=== PATIENT | female | born 1950 | race Caucasian/White ===

== ENCOUNTER 2016-08-24 05:34 | Inpatient (IN) | payer MEDICARE, OTHER ==
[2016-08-24] MEDS ORDERED: Acetaminophen, Intravenous 1,000 MG/100 ML IVBOT IV ONE ×2 (06:00→18:15)
[2016-08-24] MEDS ORDERED: OXYCODONE (OxyCONTIN) 20 MG TAB PO ONE (06:01)
[2016-08-24] MEDS ORDERED: Celecoxib 200 MG CAP PO ONE (06:02)
[2016-08-24] MEDS: CEFAZOLIN 1 GM VIAL ONE ×2 (06:18→08:31)
[2016-08-24] MEDS: BUPIVACAINE LIPOSOME/PF 1.3% 20 ML VIAL INF ONE ×3 (06:19→10:30)
[2016-08-24] MEDS ORDERED: CEFAZOLIN 1 GM VIAL ONE (06:47)
[2016-08-24] MEDS ORDERED: hydrALAZINE 20 MG/ML VIAL IV PRN (06:57)
[2016-08-24] MEDS ORDERED: LABETALOL 20 MG/4 ML SYRINGE IV PRN (06:57)
[2016-08-24] MEDS ORDERED: SCOPOLAMINE TRANSDERMAL PATCH TOP ONE (06:57)
[2016-08-24] MEDS ORDERED: ONDANSETRON HCL 4 MG ODT TAB PO PRN (06:57)
[2016-08-24] MEDS ORDERED: FENTANYL 100 MCG/2 ML VIAL IV PRN ×2 (06:57)
[2016-08-24] MEDS ORDERED: HYDROmorphone 1 MG INJECTION IV PRN ×4 (06:57→11:29)
[2016-08-24] MEDS ORDERED: MEPERIDINE 25 MG/ML TUBEX IV PRN (06:57)
[2016-08-24] MEDS ORDERED: ONDANSETRON HCL 4 MG/2 ML VIAL IV PRN ×2 (06:57→11:29)
--- NOTE | 2016-08-24 07:00 | HIM.ANES ---
Anesthesia Evaluation & Plan Diagnoses: UNILATERAL PRIMARY OSTEOARTHRITIS, LEFT KNEE (08/24/16) PAIN IN LEFT KNEE (08/24/16) Consented Procedure: LEFT TOTAL KNEE ARTHROPLASTY Surgeon:: Baltazar Wilde - Focused Review of Systems Cardiac History: No: Hx Cardiac Disorders EKG Rhythm: Sinus Bradycardia HEENT: Yes: Hx Vision Problem (PRESCRIPTION GLASSES), Other HEENT Problems Gastrointestinal: Yes: Hx Gastrointestinal Disorders, Hx Diverticulitis Neurological/Musculoskeletal: Yes: Hx Back Pain No: Hx Neurological Disorders Physiological: No Hx Mental/Emotional Disorders Blood/Autoimmune: No: Hx AIDS, Hx Hepatitis (type) Smoking Status: Former smoker Surgical History: Yes: Appendectomy (09/2011), Cholecystectomy (09/2011), Knee ( RT TKA [id number]), Other (hystectomy) Other Surgical History: EMERGENCY BOWEL RESECTION 09/2011 TOTAL HYSTERECTOMY 2008 - Focused Physical Exam NPO since: 08/23/15 1800 Mallampati: Class II Thyromental Distance: Less than 3 Neck: Full Range of Motion Dental: Normal - no significant findings Cardiovascular/Chest: Normal (RRR no mumurs or rubs.) Respiratory: Lungs clear. negative: Rhonchi, Wheezing Any problems with anesthesia, including nausea and vomiting?: No Any relatives with a history of Malignant Hyperthermia?: No Does patient have a history of Malignant Hyperthermia?: No Beta Naveen given (if appropriate): N/A Does the patient have a history of Motion Sickness-: Yes (scopolamine patch ordered) Other: Allergies Allergy/AdvReac Type Severity Reaction Status Date / Time Conurgp-Dvh-Qhb Reductase Allergy Severe severe Verified 08/24/16 06:14 Inhibitor myalgia pain medication Allergy Severe severe Uncoded 08/24/16 06:14 diarrhea Home Medications Medication Instructions Recorded Last Taken Type Cholecalciferol [Vitamin D] 1,000 units PO DAILY 08/10/16 08/23/16 History Multivitamin [One Daily] 1 each PO DAILY 08/10/16 08/23/16 History [place]-3 Fatty Acids/Fish Oil [Fish 1 each PO DAILY 08/10/16 08/17/16 History Oil 1,000 mg Capsule] L.acidoph & Paracasei,B.lactis 2 each PO BID 08/24/16 08/22/16 History [Probiotic] Height and Weight Patient's height 5 ft 2 in Patient's weight 70.76 kg Vital Signs Temperature 96.8 F L 01/03/17 06:22 Pulse Rate 66 08/24/16 06:22 Respiratory Rate 18 08/24/16 06:22 Blood Pressure 149/76 08/24/16 06:22 Pulse Oxygen Saturation 100 08/24/16 06:22 METS - Level of Activity: Climbing stairs(1 flight),walking level ground, running short distance - Anesthetic Plan Anesthesia Type: General ASA Class: 3 -: I have examined this patient and reviewed the medical record. The patient has been assessed prior to anesthesia. Risks and benefits of anesthesia and anesthetic technique options have been discussed and all questions answered. The patient accepts the risk and desires me to proceed with the planned anesthetic.
[2016-08-24 07:19] LABS: BLOOD UREA NITROGEN 19 MG/DL (7-17); CALCIUM 9.3 MG/DL (8.4-10.2); CALCULATED OSMOLALITY 270 MOs/Kg (270-290); CHLORIDE 103 mEq/L (98-107); GLUCOSE 89 MG/DL (70-99); SODIUM LEVEL 140 mEq/L (137-146)
[2016-08-24] MEDS: BUPIVACAINE 0.5% 30 ML VIAL ONE ×2 (08:30→10:30)
[2016-08-24] MEDS ORDERED: FENTANYL 250 MCG/5 ML VIAL IV ONE (10:00)
[2016-08-24] MEDS ORDERED: DEXAMETHASONE 4 MG/ML VIAL IV ONE (10:00)
[2016-08-24] MEDS ORDERED: ONDANSETRON HCL 4 MG/2 ML VIAL IV ONE (10:00)
[2016-08-24] MEDS ORDERED: MIDAZOLAM 2 MG/2 ML VIAL IV ONE (10:00)
[2016-08-24] MEDS ORDERED: LIDOCAINE 100 MG PFS IV ONE (10:00)
[2016-08-24] MEDS ORDERED: SUCCINYLCHOLINE 20 MG/1 ML INJ 10 ML MDV IV ONE (10:00)
[2016-08-24] MEDS ORDERED: PROPOFOL 200 MG/20 ML VIAL IV ONE (10:00)
--- NOTE | 2016-08-24 11:24 | HIMOPRPT ---
DATE OF PROCEDURE: 08/24/16 PREOPERATIVE DIAGNOSIS: Osteoarthritis left knee. POSTOPERATIVE DIAGNOSIS: same. OPERATION PERFORMED: Cemented left total knee arthroplasty. SURGEON: Baltazar Wilde MD BARREL RIFLER: [MK Varela] . ANESTHESIA: General. ESTIMATED BLOOD LOSS: 250 mL. DRAINS: None. COMPLICATIONS: None. DISPOSITION: Stable to the recovery room. PROCEDURE IN DETAIL: The patient was taken back to the surgical suite, where general anesthesia was induced. The bump was placed under the left hip. Bolsters were positioned to hold the knee at maximal flexion and in 90 degrees flexion. The tourniquet was applied to the left thigh, and secured with 1000 drapes. The left foot, leg, and thigh were then prepped and draped in the standard sterile fashion. A midline anterior skin incision was made. This was carried down to a medial parapatellar capsular incision. Hemostasis was achieved with the Bovie throughout the case. The initial portion of the case was done with the tourniquet down. The medial collateral ligament was released at its attachment to the proximal tibia partially. This dissection was carried around posteriorly on the tibia. Similarly, the lateral capsule was released from the proximal aspect of the lateral tibia. A drill was used to make the starting hole in the distal femur. The intramedullary guide gypsy with the attached distal femoral cutting block and jig were then inserted up shaft of the femur. The distal femoral cutting block was set at 5 degrees of valgus, and a 10-mm cut was felt to be adequate. The distal femoral cutting block was pinned to the distal femur. The guide gypsy and jig were then removed. The distal femoral cut was then made. The femur was then sized at a size 4. The size 4, all -in-one cutting block was then pinned to the distal femur. The remaining distal femoral cuts were made with the cutting block. The ACL and PCL were then resected. The tibia was subluxed anteriorly on the femur and the medial meniscus and lateral meniscus were then resected. The posterior capsule was also released from the femur, with a Bovie and Kinsey elevator. Following this, attention was directed to the proximal tibia. The extramedullary cutting jig was used to orient the proximal tibial cutting block. There was severe bone wear along the medial tibia and the cut was set at the lowest part of this wear medially. The block was aligned and then was pinned to the proximal tibia. The guide was then removed. The block was checked with the alignment gypsy and it was felt to be in good alignment. The final cross pin was then inserted into the proximal tibial cutting block, and the oscillating saw was used to make the proximal tibial cut. The tibia was sized at a size 4 tibia. The flexion and extension gaps were then checked. These were noted to be equal with the 7 mm spacer. Following this, the femoral preparation was completed by performing the notch cut on the femur. A trial femoral component was then impacted onto the femur. It was noted to have good fit and stability. A size 4 modular tibial tray trial with a 7 mm posterior stabilized trial poly insert, was inserted onto the tibia. The knee was brought through range of motion and the correct rotation for the tibial component was marked on the anterior aspect of the proximal tibia. The preparation of the patella was then performed. The patella was measured at 22 mm in thickness. The patellar cutting jig was then clamped onto the patella, and the patellar cut was made. The remaining patella was noted to be 13 mm. The patella was sized to a 35, and the 3 PEG holes were then drilled with the drill guide. A trial 35 patellar component was placed. The knee was brought through range of motion, and patellar tracking was noted to be central. At this point, the leg was exsanguinated with an Esmarch, and the tourniquet was inflated to 300 mmHg. The trial components were then removed. The tibial preparation was completed by drilling and punching the proximal tibia with the appropriate guide. Exparel was injected into the posterior capsule. Prosthetic components were opened. The cut bony surfaces were irrigated with pulsatile lavage and suctioned dry. A bone plug was placed in the distal femoral drill hole. Two packs of gentamicin cement were then mixed in the injection syringe. Cement was then injected onto the proximal tibia, and the size 4 fixed bearing tibial tray was impacted onto the tibia. Excess cement was removed. Cement was then injected onto the distal femur. The size 4 left posterior stabilized cemented femoral component was then impacted onto the distal femur. Excess cement was removed. A trial 7 mm stabilized poly insert was placed on the tibial tray. The knee was brought into extension, and axial compression was placed across the joint. Cement was then injected onto the patella and a size 35 All-Poly oval medialized dome patellar component was clamped into position, and excess cement was removed. The prosthesis used was the synthetic substitute metal DePuy Attune total knee. The cement was allowed to cure. The tourniquet was deflated after cement had cured,and final hemostasis was achieved.Then, the stability of the knee was again checked. The knee was brought through range of motion. It was noted to come into full extension with good soft tissue balance medially and laterally. Mid-range soft tissue balance was good as well, and soft tissue balance at 90 degrees flexion, was good. At this point, the trial poly component was removed and a prosthetic 7 mm size 4 posterior stabilized fixed bearing poly insert was impacted onto the tibial tray, and the knee was then reduced and brought through range of motion. It was noted to have good soft tissue balance in flexion and extension, with central patellar tracking, and full extension. The knee was then irrigated with the pulsatile lavage. Exparel was injected medially and laterally along the MCL, LCL, VMO, and capsular incision. Another round of irrigation was performed. The capsular incision was closed with #2 FiberWire suture and #1 Vicryl suture. The knee triangle was used to flex the knee to 30 degrees for the closure. The subcutaneous tissues were then irrigated , injected with 5% Sensorcaine, and closed in 2 layers with inverted 0-Vicryl suture deep, inverted 2-0 Vicryl suture superficially. A running subcuticular 3- 0 Monocryl suture was then placed in the skin and a sterile Aquacel Ag dressing was applied. The patient was then extubated and taken to the recovery room in stable condition. The patient tolerated the procedure well without immediate complications.
[2016-08-24] MEDS ORDERED: DIPHENHYDRAMINE 50 MG/ML VIAL IV PRN (11:29)
[2016-08-24] MEDS ORDERED: Aluminum;Magnesium;Simethicone 30 ML UDC PO PRN (11:29)
[2016-08-24] MEDS ORDERED: ZOLPIDEM TARTRATE 5 MG TAB PO PRN (11:29)
[2016-08-24] MEDS ORDERED: DIPHENHYDRAMINE 25 MG CAP PO PRN (11:29)
[2016-08-24] MEDS ORDERED: MAGNESIUM HYDROXIDE 30 ML BOTTLE PO PRN (11:29)
[2016-08-24] MEDS ORDERED: BISACODYL 10 MG SUPP PR PRN (11:29)
[2016-08-24] MEDS ORDERED: SODIUM CHLORIDE 0.9% 3 ML FLUSH FLUSH PRN (11:29)
[2016-08-24] MEDS ORDERED: NALOXONE 0.4 MG/ML AMPULE IV SCH (12:00)
[2016-08-24] MEDS ORDERED: FENTANYL 100 MCG/2 ML VIAL ONE (12:16)
--- NOTE | 2016-08-24 12:23 | DIRPT ---
CLINICAL DATA: 66-year-old female status post knee surgery today. Initial encounter. EXAM: PORTABLE LEFT KNEE - 1-2 VIEW COMPARISON: Knee MRI 08/07/2009 FINDINGS: Portable AP and cross-table lateral views at 1157 hours. Sequelae of left total knee arthroplasty. Hardware components appear intact and normally aligned. Postoperative changes to the surrounding soft tissues including gas within the joint space. No unexpected osseous changes. IMPRESSION: Left total knee arthroplasty with no adverse features. Electronically Signed By: Cristiano Billingsley M.D. On: 08/24/2016 12:20
[2016-08-24] MEDS: NS 1,000 ML IV SCH ×2 (13:04→15:59)
[2016-08-24] MEDS: CALCIUM CARBONATE + VITAMIN D 500 MG TAB PO SCH ×2 (13:09→17:37)
[2016-08-24] MEDS: VITAMINS, MULTIPLE CAP PO SCH (13:09)
[2016-08-24] MEDS: OXYCODONE HCL 5 MG TABLET PO SCH ×3 (13:09→22:37)
[2016-08-24] MEDS: Cefazolin 2gm/50 ml D5W 2 GM/50 ML RTU IV SCH ×2 (13:09→21:37)
[2016-08-24 13:11] VITALS: BMI 28.5
[2016-08-24] MEDS ORDERED: Vaccine Screening Complete SCH (14:00)
--- NOTE | 2016-08-24 14:53 | SC.ANESPOS ---
Post-Anesthesia Note LOC: Fully Awake Post-Anesthesia Assessment: Awake, Returned to Baseline, Hemodynamically Stable , Pain Control Adequate Phase I & II Recovery Complete: Yes Apparent Anesthesia Complication: No : N - Vital Signs Blood Pressure: 153/68 Pulse: 75 Resp Rate: 18 O2 Sat: 99 Temp: 98.4 F
[2016-08-24] MEDS: SODIUM CHLORIDE 0.9% 3 ML FLUSH FLUSH SCH (17:35)
[2016-08-24] MEDS: Celecoxib 200 MG CAP PO SCH (17:37)
[2016-08-24] MEDS: Aspirin (Orange Enteric Coated) 325 mg tab PO SCH (17:38)
[2016-08-24] MEDS ORDERED: SODIUM CHLORIDE 0.9% 3 ML FLUSH FLUSH SCH (18:00)
[2016-08-24] MEDS ORDERED: Pharmacy Discontinue All Previous Acetaminophen Orders SCH (19:00)
[2016-08-24] MEDS: ONDANSETRON HCL 4 MG/2 ML VIAL IV SCH (20:34)
[2016-08-24] MEDS: OXYCODONE (OxyCONTIN) 20 MG TAB PO SCH (20:34)
[2016-08-24] MEDS: DOCUSATE-SENNA CONCENTRATE TAB PO SCH (20:35)
[2016-08-25] MEDS: ONDANSETRON HCL 4 MG/2 ML VIAL IV SCH ×4 (02:02→18:11)
[2016-08-25] MEDS: Acetaminophen, Intravenous 1,000 MG/100 ML IVBOT IV SCH ×4 (02:03→17:16)
[2016-08-25] MEDS: OXYCODONE HCL 5 MG TABLET PO SCH ×6 (02:03→22:52)
[2016-08-25] MEDS: Cefazolin 2gm/50 ml D5W 2 GM/50 ML RTU IV SCH (05:36)
[2016-08-25] MEDS: SODIUM CHLORIDE 0.9% 3 ML FLUSH FLUSH SCH ×2 (05:37→17:16)
[2016-08-25 07:16] LABS: MPV 9.2 fL (7.4-10.4)
[2016-08-25 07:48] LABS: BLOOD UREA NITROGEN 20 MG/DL (7-17); CALCIUM 8.6 MG/DL (8.4-10.2); CALCULATED OSMOLALITY 265 MOs/Kg (270-290); CHLORIDE 102 mEq/L (98-107); GLUCOSE 106 MG/DL (70-99); SODIUM LEVEL 136 mEq/L (137-146)
[2016-08-25] MEDS: Aspirin (Orange Enteric Coated) 325 mg tab PO SCH ×2 (07:49→17:16)
[2016-08-25] MEDS: OXYCODONE (OxyCONTIN) 20 MG TAB PO SCH ×2 (07:49→21:22)
[2016-08-25] MEDS: Celecoxib 200 MG CAP PO SCH ×2 (07:49→17:16)
[2016-08-25] MEDS ORDERED: Remove Transdermal Scopolamine Patch after 24 hours ONE (08:00)
--- NOTE | 2016-08-25 08:30 | PCM.ORTHBL ---
- Subjective Chief Complaint: Patient admits pain is under good control. States she feels groggy still today and doesn't have much of an appetite. Hospital Day #: 1 Post Op Day: 1 (s/p left TKA on 08/24/2016) Daily Assessment - Patient: Reports: No new complaints, Awake Alert Oriented x4 , Still having pain, Tolerating liquids well, Tolerating Regular Diet, Afebrile - Objective / Physical Exam Vital Signs: Temperature: 98.3 F (08/25/16 06:00) HR: 73 (08/25/16 06:00)RR: 18 (08/25/16 06: 00) BP: 105/51 (08/25/16 06:00)Pulse Ox: 93 (08/25/16 06:00) General: Alert, Oriented x3, Cooperative, Mild distress (when weightbearing) Musculoskeletal / Extremities: 2 plus Dorsalis Pedis Pulse, Dressing Clean/Dry/ Intact (small area of drainage), Swelling (moderate), Capillary Refill, Muscle Tone, Motor 5/5 throughout Neurological: Positive Sensation First Dorsal Web Space, Sensation to light touch intact, Dorsiflexion Intact, Plantarflexion Intact Skin: Warm,Dry and Intact, No rashes, No breakdown. negative: Erythema, Warmth Laboratory/Diagnostics Reviewed: 08/25/16 06:46 08/25/16 06:46 - Assessment and Plan (1) Total knee replacement status Acute Z96.659 - PRESENCE OF UNSPECIFIED ARTIFICIAL KNEE JOINT Present on Admission: No left Z96.652 - Presence of left artificial knee joint Plan: Patient is stable. Continue working with PT on ROM and gait. Continue ice and elevation; will get new ice machine today. Dressing to stay intact. Continue pain management and ASA 325mg BID as well as SCDs for DVT prophylaxis. Will continue to follow; likely discharge home tomorrow if stable.
--- NOTE | 2016-08-25 08:37 | PCM.DCS92 ---
- Final/Secondary Discharge Diagnosis (1) Total knee replacement status Acute Z96.659 - PRESENCE OF UNSPECIFIED ARTIFICIAL KNEE JOINT Present on Admission: No left Z96.652 - Presence of left artificial knee joint Discharge Disposition: Discharge w/ Home Health Discharge Condition: Stable Cognitive Discharge Status: Unimpaired Fuctional Discharge Status: Walker Assistance Physician Follow up/Referrals: Baltazar Wilde MD [Staff Physician] - Two Weeks Diet at Discharge: As Tolerated Activity: No Restrictions, As Tolerated Call Office For: Worsening Symptoms, Wound is Draining Pus, Fever over 101 F, Pain Uncontrolled By Meds Discontinue use of:: Alcohol, All Illegal Substances, All Types of Tobacco - DC Summary Notes Hospital Course Note:: Discharge summary on patient named AMADOR QUEVEDO admitted to [facility] on 08/24/16 by Baltazar Wilde MD. Date of discharge is 08/26/2016. Attending physician: Dr. Wilde Procedure performed: left total knee arthroplasty Condition on discharge: Stable Discharged to: home with home health HPI: 66 year-old female with longstanding history of left knee pain secondary to underlying osteoarthritis having failed extensive conservative treatment including anti-inflammatories, Tylenol, rest, activity modification, home exercise program, cortisone injection, Visco supplement, and weight loss. Patient elected to have left total knee arthroplasty. Hospital course: Patient underwent left total knee arthroplasty on 08/24/2016 and was admitted for observation and physical therapy. Physical therapy was started postop day 0 with patient progressing well postop day 1 and postop day 2. Diet was advanced with bladder function intact. Pain well controlled with oral medications. By post-op day 2 patient was doing well and ready for discharge. Wound Care Surgical Site: Yes Site Description (if applicable): left anterior knee May Shower Starting:: at discharge Remove Clear Dressing In How Many Days?: POD #7 Medical Equipment (Order must still be written on paper): Walker Remove Transdermal Scopalamine patch if present: YES Medication Instructions: Rx Given at Clinic Continue Ice Packs/Ice Machine to Operative Area: Yes Activity as Tolerated: Yes Weight Bearing: As Tolerated Current Dressing: Aquacel Dressing Care: Keep Wound Clean & Dry, No Tub Baths, Do Not Change Dressing - Consults/Home Health Outpatient Consults: Home Health
[2016-08-25] MEDS: VITAMINS, MULTIPLE CAP PO SCH (11:15)
[2016-08-25] MEDS: NS 1,000 ML IV SCH (11:15)
[2016-08-25] MEDS: CALCIUM CARBONATE + VITAMIN D 500 MG TAB PO SCH ×2 (11:15→17:18)
[2016-08-25] MEDS: DOCUSATE-SENNA CONCENTRATE TAB PO SCH (21:22)
[2016-08-26] MEDS: ONDANSETRON HCL 4 MG/2 ML VIAL IV SCH ×2 (01:48→05:36)
[2016-08-26] MEDS: OXYCODONE HCL 5 MG TABLET PO SCH ×3 (01:48→09:44)
[2016-08-26] MEDS: SODIUM CHLORIDE 0.9% 3 ML FLUSH FLUSH SCH (05:36)
[2016-08-26] MEDS ORDERED: ACETAMINOPHEN 325 MG/TAB TABLET PO SCH (06:00)
[2016-08-26 06:29] VITALS: BP 123/56; PULSE 101; TEMP 98.6
[2016-08-26 07:26] LABS: MPV 9.1 fL (7.4-10.4)
--- NOTE | 2016-08-26 08:13 | PCM.ORTHBL ---
- Subjective Hospital Day #: 2 Post Op Day: 2 (s/p left TKA on 08/24/2016) Daily Assessment - Patient: Reports: No new complaints, Awake Alert Oriented x4 , Feels better, Pain is less, Tolerating liquids well, Tolerating Regular Diet, Ambulating in [place], Ambulating in Room, Ambulating with Physical Therapist. Denies: Difficulty Swallowing, Shortness of breath, Nausea, Vomiting - Objective / Physical Exam Vital Signs: Temperature: 98.6 F (08/26/16 06:00) HR: 101 (08/26/16 06:00)RR: 18 (08/26/16 06 :00) BP: 123/56 (08/26/16 06:00)Pulse Ox: 93 (08/26/16 06:00) General: Alert, Oriented x3, Cooperative, No acute distress, Other (resting comfortably in bed with CPM) Musculoskeletal / Extremities: 2 plus Dorsalis Pedis Pulse, Dressing Clean/Dry/ Intact (small area of dried discharge distal dressing), Swelling (moderate), Capillary Refill, Muscle Tone, Motor 5/5 throughout Neurological: Positive Sensation First Dorsal Web Space, Sensation to light touch intact, Dorsiflexion Intact, Plantarflexion Intact Skin: Warm,Dry and Intact, No rashes, No breakdown Laboratory/Diagnostics Reviewed: 08/26/16 06:28 08/25/16 06:46 - Assessment and Plan (1) Total knee replacement status Acute Z96.659 - PRESENCE OF UNSPECIFIED ARTIFICIAL KNEE JOINT Present on Admission: No left Z96.652 - Presence of left artificial knee joint Plan: Patient is improving well. She will be ready for discharge after her morning session with PT/OT today. She will continue pain management as needed and ASA 325mg BIDWM and scripts were given to her in clinic. She will continue working with PT once outpatient and has home health scheduled. Follow-up in the office is scheduled for 2 weeks.
[2016-08-26] MEDS: OXYCODONE (OxyCONTIN) 20 MG TAB PO SCH (08:15)
[2016-08-26] MEDS: Aspirin (Orange Enteric Coated) 325 mg tab PO SCH (08:15)
[2016-08-26] MEDS: Celecoxib 200 MG CAP PO SCH (08:15)
[2016-08-26] MEDS: NS 1,000 ML IV SCH (09:44)
[2016-08-26] MEDS: CALCIUM CARBONATE + VITAMIN D 500 MG TAB PO SCH (11:01)
[2016-08-26] MEDS: VITAMINS, MULTIPLE CAP PO SCH (11:01)
== END 2016-08-26 11:38 | disposition home health service (06) | DRG 470 ==
LOC: SDC 05:34 → MPS3 12:41
PROVIDERS: ADMIT Orthopaedic Surgery; ATTEND Orthopaedic Surgery
PROC: 0SRD0J9 Replacement of Left Knee Joint with Synthetic Substitute, Cemented, Open Approach (ICD-10-PCS; principal; 2016-08-24 07:15)
DX: M17.12 Unilateral primary osteoarthritis, left knee (principal); Z88.8 Allergy status to other drugs, medicaments and biological substances; Z87.891 Personal history of nicotine dependence; Z79.899 Other long term (current) drug therapy
CPT/HCPCS: 80048; 85027; 86850; 86900; 86901; 97161; 97165; C9290; G0237; J0131; J0171; J0330; J0690; J1100; J1170; J2001; J2250; J2405; J3010; J3490